=== PATIENT | male | born 1945 | race Caucasian/White ===

== ENCOUNTER 2017-02-24 07:25 | Outpatient (CLI) | payer MEDICARE, OTHER ==
[~2017-02-24] VITALS: Ht 182.9 cm; Wt 109.1 kg
--- NOTE | ~2017-02-24 | HEMODYNAMI ---
PATIENT:JAVI ENGLISH MEDICAL RECORD: [id number] : 49 LOCATION:D.CAT ADMISSION DATE: 02/24/17 Generatedon:02/24/201712:22 Patient name: JAVI ENGLISH Patient #: [id number] SSN: : 1945 Date of study: 02/24/2017 Page: Of Hemodynamic Procedure Report Patient Data Patient Demographics Procedure consent was obtained First Name: JAVI Gender: Male Last Name: TAMEKA : 1945 [facility] Initial: E Age: 71 year(s) Patient #: [id number] Race: Unknown Additional ID: [id number] Contact details [address]: [address] [place] [address] cr State: [place] City: [facility] Zip code: [address] Past Medical History Allergies: No known allergies Admission Admission Data Admission Date: 02/24/2017 Admission Time: 7:25 Procedure Procedure Types Cath Procedure Diagnostic Procedure LHC LHC w/Coronaries PCI Procedure Coronary Stent Initial Miscellaneous Procedures Moderate Sedation up to 15 minutes Procedure Description Procedure Date Procedure Date: 02/24/2017 Procedure Start Time: 12:03 Procedure End Time: 12:20 Procedure Staff Name Function Alfredo Sanchez MD Performing Physician Sukhwinder Nunn RN Nurse Alex Roberts RT Scrub Val Tadeo RT Monitor Procedure Data Cath Procedure Fluoroscopy Diagnostic fluoroscopy Total fluoroscopy Time: 4.4 time: 4.4 min min Diagnostic fluoroscopy Total fluoroscopy dose: dose: 1194 mGy 1194 mGy Contrast Material Contrast Material Type Amount (ml) Isovue 300 119 Entry Location Entry Primary Successful Side Size Upsize Upsize Entry Closure Succes sful Closure Location (Fr) 1 (Fr) 2 (Fr) Remarks Device Remarks Femoral Right 5 Fr 6 Fr Exoseal artery Short Estimated blood loss: 10 ml Diagnostic catheters Device Type Used For End Catheter Placement Cordis 5Fr Pigtail LV Angiography Catheter (MP) Cordis 5Fr JL 4.0 Left Coronary Catheter (MP) Angiography Cordis 5Fr 3DRC Catheter Right Coronary (MP) Angiography Procedure Complications No complications Procedure Medications Medication Administration Route Dosage Oxygen NC 2 l/min Heparin Flush Bag added to field 2 bags (1000units/500ml NS) 0.9% NaCl I.V. 100 ml/hr Fentanyl I.V. 50 mcg Versed I.V. 1 mg Fentanyl I.V. 50 mcg Versed I.V. 1 mg Heparin Bolus I.V. 4000 units Hemodynamics Rest Heart Rate: 47 (bpm) Snapshots Pre Cath Intra NCS Post Cath Vital Signs Time Heart Resp SPO2 NIBP Rhythm Pain Sedation Rate (ipm) (%) (mmHg) Status Level (bpm) 11:47:24 43 18 98 117/66(89) NSR 0 (11) 10(A) , No pain 11:51:36 48 21 96 114/61(92) NSR 0 (11) 10(A) , No pain 11:55:46 46 19 94 120/64(79) NSR 0 (11) 10(A) , No pain 11:59:58 50 18 96 118/62(83) NSR 0 (11) 10(A) , No pain 12:04:55 26 17 98 105/60(81) NSR 0 (11) 9(A) , No pain 12:09:01 51 18 96 107/67(89) NSR 0 (11) 9(A) , No pain 12:13:54 44 16 96 109/63(87) NSR 0 (11) 9(A) , No pain 12:18:02 49 20 96 112/64(86) NSR 0 (11) 9(A) , No pain Medications Time Medication Route Dose Verified Delivered Reason Notes Effectiveness by by 11:46:41 Oxygen NC 2 Sukhwinder Pretty Per physician l/min Edouard Nunn RN RN 11:46:52 Heparin Flush added 2 Sukhwinder Pretty used for Bag to bags Edouard Nunn RN procedure (1000units/500ml field RN NS) 11:47:02 0.9% NaCl I.V. 100 Sukhwinder Amadory Per physician ml/hr Edouard Nunn RN RN 12:03:27 Fentanyl I.V. 50 Sukhwinder Pretty for sedation mcg Edouard Nunn RN RN 12:03:34 Versed I.V. 1 mg Sukhwinder Pretty for sedation Edouard Nunn RN RN 12:09:54 Fentanyl I.V. 50 Sukhwinder Pretty for sedation mcg Edouard Nunn RN RN 12:09:58 Versed I.V. 1 mg Sukhwinder Pretty for sedation Edouard Nunn RN RN 12:10:04 Heparin Bolus I.V. 4000 Sukhwinder Pretty for units Edouard Nunn RN anticoagulation cottage parent Log Time Note 11:21:33 Sukhwinder Nunn RN sent for patient. Start room use. 11::33 Time tracking: Regular hours 11:31:37 Plan of Care:Hemodynamics will remain stable., Cardiac rhythm will remain stable., Comfort level will be maintained., Respiratory function will remain adequate., Patient/ family verbilizes understanding of procedure., Procedure tolerated without complication., Recovers from procedure without complications.. 11:36:28 Patient received from Pre/Post Procedure Room to CCL 2 Alert and oriented. Tansferred to table in Supine position. 11:36:29 Warm blankets applied, and surinder hugger turned on for patient comfort. 11:36:29 Correct patient and procedure confirmed by team. 11:36:30 Signed procedure consent form obtained from patient. 11:36:31 ECG and BP/O2 sat monitors applied to patient. 11:36:32 Full Disclosure recording started 11:46:08 Vital chart was started 11:46:41 Oxygen 2 l/min NC was administered by Sukhwinder Nunn RN; Per physician; 11:46:52 Heparin Flush Bag (1000units/500ml NS) 2 bags added to field was administered by Sukhwinder Nunn RN; used for procedure; 11:47:02 0.9% NaCl 100 ml/hr I.V. was administered by Sukhwinder Nunn RN; Per physician; 11:47:09 Rhythm: 1st degree heart block 11:47:38 Pre-procedure instructions explained to patient. 11:47:38 Pre-op teaching completed and patient verbalized understanding. 11:47:39 Family in waiting room. 11:47:41 Patient NPO since Midnight. 11:47:48 Patient allergic to No known allergies 11:47:51 Is the patient allergic to Iodine/contrast media? No. 11:47:57 Is patient on blood thinner?Yes 11:48:01 ACC The patient was administered the following blood thiners within the last 24 hours: ACCPlavix 11:48:32 Patient diabetic? Yes. 11:48:37 Previous problem with sedation/anesthesia? No ? 11:48:39 Snore? Yes 11:48:39 Sleep apnea? Yes 11:48:40 Deviated septum? No 11:48:41 Opens mouth fully? Yes 11:48:41 Sticks out tongue? Yes 11:48:43 Airway obstruction? No ? 11:48:45 Dentures? No ? 11:48:50 Pre procedure: right dorsailis pedis pulse 2+ Normal; easily identifiable; not easily obliterated 11:48:54 Modified Pieter's test Ulnar > 7 seconds. 11:49:10 IV patent on arrival in left hand with 0.9% NaCl at [facility]. 11:49:16 Lab results completed and on chart. 11:49:19 Right groin area was prepped with chlora-prep and draped in sterile fashion 11:49:20 Alarms reviewed by R. N. 11:49:20 Sharps counted by scrub and verified by R.N. 11:51:42 Patient pain scale 0/10 ?. 11:51:49 Use device set Femoral Dx 11:51:50 Acist Syringe opened to sterile field. 11:51:50 Bag Decanter opened to sterile field. 11:51:51 Medline Cath Pack opened to sterile field. 11:51:51 Terumo 5Fr Mendota Sheath opened to sterile field. 11:51:52 St Anthony 260cm J .035 wire opened to sterile field. 11:51:53 Acist Hand Control opened to sterile field. 11:51:53 Acist Manifold opened to sterile field. 11:51:54 Diagnostic Infinity 5Fr Multipack catheter opened to sterile field. 11:51:54 Tegaderm 4 x 4 opened to sterile field. 11:52:57 Baseline sample Acquired. 11:55:00 Physician paged 11:58:49 Zero performed for pressure channel P1 11:59:40 Final Timeout: patient, procedure, and site verified with staff and physician. All members of the team are in agreement. 11:59:42 Right groin site verified by team. 11:59:46 Physical assessment completed. ASA score P 2 - A patient with mild systemic disease as per Alfredo Sanchez MD. 11:59:58 Sedation plan: IV Moderate Sedation Versed, Fentanyl 12:01:41 H&P Date Dictated: 02/24/2017 New H&P dictated by physician.. 12:03:03 Procedure started. 12:03:07 Local anesthetic to right femoral artery with Lidocaine 2% by Alfredo Sanchez MD.INITIAL ACCESS ONLY 12:03:27 Fentanyl 50 mcg I.V. was administered by Sukhwinder Nunn RN; for sedation; 12:03:34 Versed 1 mg I.V. was administered by Sukhwinder Nunn RN; for sedation; 12:03:44 A 5 Fr sheath was inserted into the Right Femoral artery 12:04:08 A Cordis 5Fr Pigtail Catheter (MP) was advanced over the wire and used for LV Angiography. 12:04:42 LV gram done using ARZATE 12:04:55 EF : 50 % 12:04:59 Injector settings: Ml/sec: 10, Volume: 20, 12:05:00 Catheter removed. 12:05:05 A Cordis 5Fr JL 4.0 Catheter (MP) was advanced over the wire and used for Left Coronary Angiography. 12:06:38 Terumo 6Fr Mendota Sheath opened to sterile field. 12:06:39 Bravo Whisper J 300cm 0.014 guide wire opened to sterile field. 12:06:40 RostelecomixCompak Inflation Kit opened to sterile field. 12:07:46 Catheter removed. 12:07:59 A Cordis 5Fr 3DRC Catheter (MP) was advanced over the wire and used for Right Coronary Angiography. 12:08:39 Catheter removed. 12:08:47 Cordis 6FR XBLAD 4.0 guide catheter opened to sterile field. 12:09:11 Sheath upsized to a 6 Fr Short. 12:09:37 6 Fr XBLAD 4.0 guide catheter was inserted over the wire 12:09:54 Fentanyl 50 mcg I.V. was administered by Sukhwinder Nunn RN; for sedation; 12:09:58 Versed 1 mg I.V. was administered by Sukhwinder Nunn RN; for sedation; 12:10:04 Heparin Bolus 4000 units I.V. was administered by Sukhwinder Nunn RN; for anticoagulation; 12:10:47 Whisper wire advanced. 12:13:49 Inflation Number: 1 A Pangea Universal Holdingstronic Integrity 3.5 X 18 stent was prepped and advanced across the Dist CX. The stent was deployed at 11 MAX for 0:14 (min:sec). 12:13:59 Stent catheter was removed intact over wire. 12:14:00 Wire removed. 12:14:00 Guide catheter removed. 12:14:12 Cordis 6Fr Exoseal opened to sterile field. 12:14:19 Sheath removed intact; hemostasis achieved with Exoseal to the Right Femoral artery. 12:14:23 Procedure ended.(Physican Out) 12:14:33 Fluoroscopy time 04.40 minutes. 12:14:36 Fluoroscopy dose: 1194 mGy 12:14:36 Flurop Dose total: 1194 12:14:40 Contrast amount:Isovue 300 119ml. 12:14:41 Sharps counted by scrub and verified by R.N. 12:15:48 Insertion/operative site no bleeding no hematoma. 12:15:50 Post-op/insertion site Right Femoral artery dressed using a 4 x 4 and Tegaderm. 12:15:53 Post right femoral artery:stable, clean and dry 12:15:54 Post Procedure Pulses reassessed and unchanged 12:15:56 Post-procedure physical assessment completed. ASA score P 2 - A patient with mild systemic disease as per Alfredo Sanchez MD. 12:15:59 Post procedure rhythm: unchanged. 12:16:02 Estimated blood loss: 10 ml 12:16:04 Post procedure instruction explained to patient.Patient verbalizes understanding. 12:16:04 Patient needs reinforcement of post procedure teaching. 12:16:33 Procedure type changed to Cath procedure, Diagnostic procedure, LHC, LHC w/Coronaries, PCI procedure, Coronary Stent Initial, Miscellaneous Procedures, Moderate Sedation up to 15 minutes 12:16:38 Procedure Complication : No complications 12:16:41 See physician's report for complete and final results. 12:17:45 Procedure and supply charges have been captured, reviewed, submitted and are correct. 12:20:38 Vital chart was stopped 12:20:41 Report given to Pre/Post Procedure Room. 12:20:44 Patient transfered to Pre/Post Procedure Room with Stretcher. 12:20:53 Procedure ended. 12:20:53 Full Disclosure recording stopped 12:20:56 End room use (Document Last) Intervention Summary Intervention Notes Time ActionType Lesion and Equipment Action# Pressure Duration Attributes Used 12:13:49 Place stent Dist CX Medtronic 1 11 00:14 Integrity 3.5 X 18 stent Device Usage Item Name Manufacture Quantity Catalog Hospital Part Current Minimal L ot# / Number Charge Number Stock Stock Serial# Code Acist Acist 1 39048 361679 683674 201821 20 Syringe Medical Systems Inc Bag Microtek 1 2002S 832245 79308 940710 5 Decanter Medical Inc. Medline Cardinal 1 [id number] 042722 44797 250055 5 Cath Pack Health Terumo 5Fr Terumo 1 [id number] 317536 293582 015406 [address] [facility] 1 998248 769744 537976 802388 30 260cm J .035 wire Acist Hand Acist 1 60811 262042 917482 807440 5 Control Medical Systems Inc Acist Acist 1 28328 364741 184481 375338 5 Koalify Medical Systems Inc Diagnostic Cardinal 1 [id number] 973592 12644 861227 30 Infinity Health 5Fr Multipack catheter Tegaderm 4 3M 1 1626W 066224 717338 070281 5 x 4 Cordis 5Fr Cardinal 1 022579 5 Pigtail Health Catheter (MP) Cordis 5Fr Cardinal 1 353171 5 JL 4.0 Health Catheter (MP) Terumo 6Fr Terumo 1 YNY441 427507 086403 953460 40 Mendota Sheath Bravo Bravo 1 [id number] 091504 504747 570482 5 Whisper J Vascular 300cm 0.014 guide wire Merit Merit 1 [id number] 530376 157785 397834 15 [facility] Medical Inflation Kit Cordis 5Fr Cardinal 1 382542 5 3DRC Health Catheter (MP) Cordis 6FR Cardinal 1 [id number] 575200 721217 485159 3 XBLAD 4.0 Health guide catheter Medtronic Medtronic 1 [id number] 654249 673858 1 0 [id number] Integrity 3.5 X 18 stent Cordis 6Fr Cardinal 1 EX600 646129 121711 388132 10 Soceaniq Signature Audit [place] Stage Time Signature Unsigned Intra-Procedure 02/24/2017 Val 12:22:22 PM Counts RT(R) Signatures Monitor : Val Signature : Counts RT Date : Time : [address] [place] [address]
--- NOTE | ~2017-02-24 | OP ---
PATIENT NAME: JAVI ENGLISH MEDICAL RECORD: [id number] :49 LOCATION:D.CAT ADMISSION DATE: SURGEON: TOMMY LOONEY MD OPERATION DATE: 02/24/17 PROCEDURES: 1. Percutaneous transluminal coronary angioplasty stent left circumflex. 2. Left heart catheterization. 3. Selective coronary angiography. 4. Left ventriculogram. INDICATION: 1. Chest pain compatible with angina. 2. Coronary artery disease. PROCEDURE IN DETAIL: After informed consent was obtained and after detailed explanation of risks, benefits, as well as alternative therapies, the patient elected to proceed with angiogram and angioplasty. The right femoral area was prepped and draped in a normal sterile fashion. The right femoral artery was cannulated via modified Seldinger technique with placement of 6-Romanian sheath. All catheters exchanged through this sheath. FINDINGS: The left ventriculogram was performed in standard 30 degree ARZATE view, reveals good cardiac wall motion throughout all segments. Overall ejection fraction preserved at 50%. SELECTIVE CORONARY ANGIOGRAPHY: 1. The left main has no significant angiographic disease. 2. The left anterior descending has previously placed stents. These are widely patent with no significant restenosis. No disease elsewise throughout the left anterior descending or its branches. 3. The left circumflex is a very large dominant structure that feeds the inferior wall. It has 70-80% stenosis in the distal vessel affecting the inferior wall. This is compatible with the nuclear stress test findings. 4. The right coronary artery is small and nondominant. PTCA STENT OF THE LEFT CIRCUMFLEX: The stent used was a 3.5 X 18 millimeter Integrity. The result was 0% residual stenosis. OVERALL IMPRESSION: Successful percutaneous transluminal coronary angioplasty stent of the left circumflex going from 70-80% initial stenosis to 0% residual stenosis. TOMMY LOONEY MD CC: [id number] DICTATION DATE: 02/24/17 1500 SUPERVISOR DRAPERY HANGING: DM 02/25/17 0921 DEP CLI 02/24/17 [facility] [address] [id number]
--- NOTE | ~2017-02-24 | HP ---
PATIENT: JAVI ENGLISH MEDICAL RECORD: [id number] ACCOUNT: [id number] LOCATION:JACEY : 49 ADMISSION DATE: 02/24/17 HISTORY AND PHYSICAL EXAMINATION PROBLEM LIST: 1. Angina. 2. Coronary artery disease. 3. Abnormal nuclear stress test. 4. Previous percutaneous transluminal coronary angioplasty stent. 5. Noninsulin dependent diabetes. 6. Hypertension. 7. Hyperlipidemia. HISTORY OF PRESENT ILLNESS: This is a gentleman who presents with anginal symptomatology. Nuclear stress test shows inferior perfusion defect. He is now brought for cardiac catheterization. PHYSICAL EXAMINATION: HEAD, EYES, EARS, NOSE, AND THROAT: Benign. NECK: Supple. No jugular venous distention. Carotid upstroke plus two bilaterally without bruits. LUNGS: Overall clear to auscultation and percussion. HEART: Regular. Normal S1, normal S2. No S3, no S4. No murmurs. BONES, JOINTS, EXTREMITIES: No clubbing, cyanosis, or edema. OVERALL IMPRESSION: Chest pain with abnormal nuclear stress test. He has a high likelihood of hemodynamically significant coronary artery disease. Will proceed with coronary angiography. Further care depends upon the findings of the angiography. TOMMY LOONEY MD CC: [id number] DICTATION DATE: 02/24/17 1000 PETROLOGIST: DM 02/25/17 0843 DEP CLI 02/24/17 [facility] [address] [place] [address]
[~2017-02-24 07:25] MED LIST: ACETAMINOPHEN500 M1 PO; AMBIEN5 MG PO; ANUSOL-HC25 MG RC; BAYER CHEWABLE81 MG PO; BENADRYL25 MG PO; CELEBREX200 MG PO; COLACE100 MG PO; COUMADIN5 MG PO; COUMADIN7.5 MG PO; DIOVAN HCT 160/1 TA1 PO; ELIQUIS2.5 MG PO; GLUCOPHAGE500 MG PO; GLUCOSAMINE & C1 CAP PO; HYDROCODONE-APA1 TAB PO; METOPROLOL TART50 MG PO; MS CONTIN15 MG PO; MS CONTIN30 MG PO; MULTI-DAY VITAM1 TAB PO; ONDANSETRON4 MG/2 M3 PO; OXYCODONE HCL5 MG PO; PLAVIX75 MG PO; PRAVACHOL20 MG PO; PRAVACHOL40 MG PO; SALINE FLUSH10 ML IV; SENOKOT-S TABLE1 TAB PO; TOPROL XL50 MG PO; TUMS500 MG PO; ZOFRAN4 MG PO
[2017-02-24] MEDS ORDERED: GLUCOSAMINE & C1 CAP PO (07:38)
[2017-02-24] MEDS ORDERED: PLAVIX75 MG PO (07:38)
[2017-02-24] MEDS ORDERED: MULTIPLE VITAMI1 TA1 PO (07:40)
[2017-02-24 07:52] VITALS: BP 135/64; Ht 182.9 cm; Wt 109.1 kg
[2017-02-24 08:02] LABS: BASOPHILS 0.4 % (0-2); EOSINOPHILS 7.1 % (0-7); HEMATOCRIT 41.1 % (42.0-54.0); HEMOGLOBIN 13.9 g/dL (13.5-17.5); IMMATURE GRANULOCYTES 0.3 % (0-5); LYMPHOCYTES 23.2 % (15-50); MCH 32.3 pg (26.0-34.0); MCHC 33.8 g/dL (31.0-37.0); MCV 95.4 fL (80.0-100.0); MEAN PLATELET VOLUME 9.8 fL (7.4-10.4); PLATELET COUNT 181 10x3/uL (130-400); RBC 4.31 10x6/uL (4.20-6.10)
[2017-02-24 08:14] LABS: ANION GAP 15.7 mmol/L (8-16); CALCIUM 8.9 mg/dL (8.5-10.1); CARBON DIOXIDE 23.2 mmol/L (21.0-32.0); CREATININE - SERUM 1.1 mg/dL (0.6-1.3); POTASSIUM - SERUM 3.9 mmol/L (3.5-5.1)
--- NOTE | 2017-02-24 12:36 | NUR ---
RECIEVED TO ROOM VIA STRETCHER FROM ANESTHESIOLOGY TEACHER WITH 6 FR EXOSEAL R/GROIN CDI NO BLEEDING NO HEMATOMA NOTED. HR 48 CHEST PAIN DENIED BP 108/58. INSTRUCTED PATIENT TO KEEP HEAD FLAT ON PILLOW WITH RLE STRAIGHT
[2017-02-24] MEDS ORDERED: BAYER CHEWABLE81 MG PO (12:44)
--- NOTE | 2017-02-24 12:50 | NUR ---
DENIED C/O SB RATE 46 CHEST PAIN DENIED. 6 FR EXOSEAL R/GROIN CDI NO BLEEDING NO HEMATOMA NOTED. INSTRUCTED PATIENT TO KEEP HEAD FLAT ON PILLOW WITH RLE STRAIGHT
--- NOTE | 2017-02-24 13:13 | NUR ---
VSS WITH CHEST PAIN DENIED 6 FR EXOSEAL R/GROIN CDI NO BLEEDING NO HEMATOMA NOTED.
--- NOTE | 2017-02-24 14:00 | NUR ---
1400 CHEST PAIN DENIED WITH VSS. SANDWICH AND SODA TO BEDSIDE. 6 FR EXOSEAL R/GROIN CDI NO BLEEDING NO HEMATOMA NOTED
--- NOTE | 2017-02-24 14:30 | NUR ---
1430 VOICED NO PAIN OR NEEDS R/GROIN CDI WITH FAMILY AT SIDE
--- NOTE | 2017-02-24 15:05 | NUR ---
RESTING QUIETLY WITH NO DISTRESS NOTED R/GROIN CDI NO BLEEDING NO HEMATOMA NOTED.
--- NOTE | 2017-02-24 15:52 | NUR ---
REPOSITIONED TO SITTING WITH HOB UP 45 DEGREES CHEST PAIN IS DENIED WITH 6 FR EXOSEAL R/GROIN CDI NO BLEEDING NO HEMATOMA NOTED.
--- NOTE | 2017-02-24 16:07 | NUR ---
PIV REMOVED WITH DRESSING APPLIED. VSS WITH CHEST PAIN DENIED 6 FR EXOSEAL R/GROIN CDI NO BLEEDING NO HEMATOMA NOTED. PATIENT UP TO GET DRESSED FOR DISCHARGE HOME
--- NOTE | 2017-02-24 16:21 | NUR ---
VERBAL AND WRITTEN DISCHARGE GONE OVER WITH PATIENT AND BOTH VERBALIZED UNDERSTANDING. CHEST PAIN IS DENIED 6 FR EXOSEAL R/GROIN CDI NO BLEEDING NO HEMATOMA NOTED. PATIENT AMBULATES WITH STEADY GAIT NO DISTRESS NOTED. LEFT VIA WC TO PARKING FOR TO DRIVE HOME
== END 2017-02-24 16:24 | disposition home or self-care (01) ==
LOC: D.CATH 07:25
PROVIDERS: Internal Medicine Interventional Cardiology
DX: I25.119 Atherosclerotic heart disease of native coronary artery with unspecified angina pectoris (principal); E11.9 Type 2 diabetes mellitus without complications; I10 Essential (primary) hypertension; E78.5 Hyperlipidemia, unspecified; Z01.812 Encounter for preprocedural laboratory examination

== ENCOUNTER → 2019-07-12 20:10 | Outpatient (CLI) | payer MEDICARE, OTHER ==
[2017-02-24 07:52] VITALS: BMI 32.6
[~2019-07-12 20:10] MED LIST changes: +MULTIPLE VITAMI1 TA1 PO
== END | disposition home or self-care (01) ==
LOC: D.LABREF 20:10
PROVIDERS: ATTEND Orthopaedic Surgery
DX: M19.011 Primary osteoarthritis, right shoulder (principal)

== ENCOUNTER 2019-07-13 19:05 | Inpatient (IN) | payer MEDICARE, OTHER ==
[~2019-07-13] VITALS: Ht 182.9 cm; Wt 113.6 kg
[2019-08-11] MEDS ORDERED: PRAVASTATIN SOD10 MG PO (09:23)
[2019-08-11 10:16] LABS: BASOPHILS 0.4 % (0-2); EOSINOPHILS 9.4 % (0-7); HEMATOCRIT 41.3 % (42.0-54.0); HEMOGLOBIN 13.9 g/dL (13.5-17.5); IMMATURE GRANULOCYTES 0.7 % (0-5); LYMPHOCYTES 25.2 % (15-50); MCH 32.8 pg (26.0-34.0); MCHC 33.7 g/dL (31.0-37.0); MCV 97.4 fL (80.0-100.0); MEAN PLATELET VOLUME 9.5 fL (7.4-10.4); MONOCYTES 8.7 % (2-11); NEUTROPHILS 55.6 % (40-80); PLATELET COUNT 205 10x3/uL (130-400); RBC 4.24 10x6/uL (4.20-6.10); RDW 13.4 % (11.5-14.5); WBC 8.9 10x3/uL (4.8-10.8)
[2019-08-11 10:17] LABS: ANION GAP 11.9 mmol/L (8-16); CALCIUM 8.6 mg/dL (8.5-10.1); CARBON DIOXIDE 26.5 mmol/L (21.0-32.0); CREATININE - SERUM 1.1 mg/dL (0.6-1.3); POTASSIUM - SERUM 4.4 mmol/L (3.5-5.1)
[2019-08-11 10:22] LABS: APTT 29.1 SECONDS (22.8-39.4); INR 1.07 (0.85-1.17); PROTIME 13.4 SECONDS (11.6-15.0)
[2019-08-11 10:54] LABS: APPEARANCE CLEAR (CLEAR); BILIRUBIN NEGATIVE (NEGATIVE); COLOR YELLOW (YELLOW); GLUCOSE NEGATIVE (NEGATIVE); KETONE NEGATIVE (NEGATIVE); NITRITE NEGATIVE (NEGATIVE); PROTEIN NEGATIVE (NEGATIVE); UROBILINOGEN NORMAL (NORMAL)
[2019-08-15] MEDS ORDERED: XALATAN 0.0052.5 ML EACH EYE (06:39)
[2019-08-15 06:40] VITALS: BP 142/72; BMI 34.0
--- NOTE | 2019-08-15 11:07 | NUR ---
PT ARRIVED IN ROOM VIA BED. VS HOOKED UP, PT IS ALERT AND ORIENTED. STATES FEELING NO PAIN AT THIS TIME. NO FAMILY AT BEDSIDE. CLI N REACH, SRX2.
[2019-08-15 11:12] VITALS: BP 122/67
[2019-08-15 14:04] VITALS: BP 132/72
--- NOTE | 2019-08-15 14:07 | NUR ---
PT AWAKE AND ORIENTED, REPORTS LITTLE PAIN, ONLY A 1/10. DOES NOT REQUEST PAIN MEDS AT THIS TIME. NO FAMILY AT BEDSIDE. CL IN REACH SRX2. WILL CNT. TO MONITOR.
[2019-08-15 16:18] VITALS: BP 141/58
--- NOTE | 2019-08-15 16:35 | OP ---
PATIENT NAME: JAVI ENGLISH MEDICAL RECORD: [id number] :49 LOCATION:D.MS [id number] ADMISSION DATE:08/15/19 SURGEON: JAN RODRÍGUEZ MD DATE OF OPERATION: 08/15/2019 PREOPERATIVE DIAGNOSIS: Chronic rotator cuff arthropathy of the right shoulder. POSTOPERATIVE DIAGNOSIS: Chronic rotator cuff arthropathy of the right shoulder. PROCEDURE: Reverse total shoulder arthroplasty of the right shoulder. SURGEON: Jan Rodríguez MD PAINTER SHIPYARD: Reno Bellamy APN INTRAOPERATIVE COMPLICATIONS: None. SUMMARY OF PATHOLOGIC FINDINGS: The patient had a complete rotator cuff tear from the infraspinatus to the subscapularis. Biceps tendon had subluxed medially. Subscapularis was repairable back to the lesser tuberosity postoperatively. IMPLANTS USED: [place] Univers II system, size 10 stem, size 39 set at 135 metaphyseal component, size 39 neutral glenosphere, a size 24 base with 4 screws set. ESTIMATED BLOOD LOSS: 200 cc. OPERATIVE SUMMARY IN DETAIL: After obtaining the appropriate preoperative orthopedic surgery consent as well as anesthetic consultation, evaluation and clearance, the patient was brought to the operating room and placed on the operating table in supine position. After adequate general laryngeal mask airway was administered, the patient was placed in beach chair position. All pressure points were well padded. He was held firmly to the operating table using the vacuum pack suction system. Right upper extremity and shoulder were then prepped and draped in routine sterile fashion. The arm was held in the Trimano arm holding device from [employer]. Deltopectoral incision was taken down. The cephalic vein was protected throughout the entire case. Clavipectoral fascia was incised. The conjoined tendon was retracted gently medially while the deltoid was held laterally using a brown retractor. The biceps tendon was partially torn. It was then released in its entirety and tagged for later reapproximation. Humeral head was subluxed into the incision site where the proximal humeral head cut was made. Serial and sequential reaming and broaching were done for a size 10, proximal volar reaming was done for a size 39. At this point, the large humeral head cut protector was placed over the stem and the glenoid was exposed. Circumferential labrectomy of the glenoid with a biceps tenotomy was performed. Center pin was put into place. The appropriate reaming was performed. After the appropriate reaming was performed, measurements were taken and the baseplate was put into place with the central screw with excellent fixation using a 25. Two locking and 2 nonlocking screws were placed on the periphery with good fixation. The clearing device was utilized around the periphery of the baseplate to be sure that the glenosphere seated nicely. The glenosphere was then put into place on the Oneil taper tamped screwed tamped screwed, it fit nicely with good position. At this point, attention was turned OPERATIVE REPORT [id number] JAVI ENGLISH to the proximal humerus. After several trials a size 10 stem with the 39 capsule component was articulated on the back table and then tamped into place. Trials were undertaken. It was felt that a 6 polyethylene was the most appropriate. The 6 was then tamped into place. Shoulder was reduced, taken through range of motion and found to be stable in all planes. Wound was then copiously irrigated and filled with a gram of vancomycin, gram of tobramycin. Subscapularis was then reapproximated to the lesser tuberosity transosseously using #2 Ethibond done by Reno Bellamy. Then, skin was closed over the incision with #1 Vicryl, 2-0 Vicryl and skin cecy. Sterile dressings were applied. The patient was awakened and taken to the recovery room in stable condition. All final needle and sponge counts were correct. TRANSINT:[id number] Voice Confirmation ID: [id number] DOCUMENT ID: [id number] MARCOS ABREU, JAN DE SANTIAGO at 1635 CC: [id number] DICTATION DATE: 08/15/19 1003 PLASTIC PANEL INSTALLER: 08/15/19 1500 ADM IN [facility] [address] [place] [address]
--- NOTE | 2019-08-15 19:00 | NUR ---
BEDSIDE REPORT RECEIVED AND CARE OF PT ASSUMED. PT LYING IN HIGH RESTREPO'S POSITION VISITING WITH SPOUSE. RIGHT ARM IN SLING. FINGERS WARM AND PINK AND FREELY MOVABLE. PT C/O NO PAIN AT THIS TIME, BUT CONCERNED ABOUT CONSTIPATION, WITH NO BM X3 DAYS. DRINKING PRUNE JUICE AT THIS TIME. IV TO LEFT AC PATENT WITH NS INFUSING AT 75 ML/HR. WILL MONITOR FOR NEEDS.
[2019-08-15 20:00] VITALS: BP 140/61
[2019-08-15 20:02] VITALS: Ht 182.9 cm; Wt 113.6 kg
--- NOTE | 2019-08-15 21:20 | NUR ---
HS MEDICATIONS GIVEN TO INCLUDE A NORCO PO FOR PAIN, AND A DULCOLAX SUPPOSITORY FOR CONSTIPATION.
--- NOTE | 2019-08-15 23:00 | NUR ---
POSITIVE RESULTS FROM DULCOLAX SUPP...PT HAD LARGE BM. WILL CONTINUE TO MONITOR FOR NEEDS.
[2019-08-16] VITALS: BP 125/61
--- NOTE | 2019-08-16 04:30 | NUR ---
PT C/O RIGHT SHOULDER BEGINNING TO HAVE SEVERE PAIN. GAVE PERCOSET 10 PO AND IV TORADOL PER PRN ORDER. WILL MONITOR FOR EFFECTIVENESS AND CONSIDER STARTING DONOR CENTER TECHNICIAN PER ORDER IF NEEDED.
[2019-08-16 05:16] VITALS: BP 130/60
[2019-08-16 06:45] LABS: HEMATOCRIT 33.9 % (42.0-54.0); HEMOGLOBIN 11.7 g/dL (13.5-17.5); MCH 33.5 pg (26.0-34.0); MCHC 34.5 g/dL (31.0-37.0); MCV 97.1 fL (80.0-100.0); MEAN PLATELET VOLUME 9.4 fL (7.4-10.4); RBC 3.49 10x6/uL (4.20-6.10); WBC 11.7 10x3/uL (4.8-10.8)
--- NOTE | 2019-08-16 07:52 | NUR ---
ALERT AND ORIENTED. LUNGS CLEAR BILATERALLY. HEART SOUNDS S1 AND S2 HEARD IN ALL KRISHNA. BOWEL SOUNDS ACTIVE X 4. DRSG TO RIGHT SHOULDER C/D/I. SLING IN PLACE. IV TO LEFT AC PATENT WITHOUT REDNESS. DENIES NEEDS. BED LOW. CALL OSULLIVAN AND PERSONAL ITEMS IN REACH. WILL CONTINUE TO MONITOR.
[2019-08-16 07:54] VITALS: BP 143/53
[2019-08-16] MEDS ORDERED: PERCOCET 10-321 EAC1 PO (08:31)
--- NOTE | 2019-08-16 10:33 | NUR ---
DISCHARGE EDUCATION PROVIDED BOTH WRITTEN AND VERBAL. VERBALIZED UNDERSTANDING. DENIES FURTHER QUESTIONS. EDUCATION PROVIDED ON PENDULUM EXERCISISES BOTH WRITTEN AND VERBAL. TWO EXTRA DRSGS PROVIDED FOR SHOULDER. IV REMOVED FROM LEFT HAND WITH TIP INTACT. PATIENT DENIES FURTHER NEEDS. DISCHARGED HOME WITH WITH ALL BELONGINGS AFTER WALKING WITH PT STEPHAN.
== END 2019-08-16 10:35 | disposition home or self-care (01) | DRG 483 ==
LOC: D.MS 08-15 05:40 → D.SDCHOLD 08-15 05:40 → D.MS 08-15 10:53
PROVIDERS: ADMIT Orthopaedic Surgery; ATTEND Orthopaedic Surgery
PROC: 0RRJ00Z Replacement of Right Shoulder Joint with Reverse Ball and Socket Synthetic Substitute, Open Approach (ICD-10-PCS; principal; 2019-08-15 08:15)
DX: M12.811 Other specific arthropathies, not elsewhere classified, right shoulder (principal); I10 Essential (primary) hypertension; I25.10 Atherosclerotic heart disease of native coronary artery without angina pectoris; E78.5 Hyperlipidemia, unspecified; Z87.891 Personal history of nicotine dependence

== ENCOUNTER → 2020-05-09 11:16 | Outpatient (CLI) | payer MEDICARE, OTHER ==
[2019-08-15 20:02] VITALS: BMI 34.0
[~2020-05-09 11:16] MED LIST changes: +PERCOCET 10-321 EAC1 PO; +PRAVASTATIN SOD10 MG PO; +XALATAN 0.0052.5 ML EACH EYE
== END | disposition home or self-care (01) ==
LOC: D.HCCARDIO 11:16
PROVIDERS: ATTEND Internal Medicine Cardiovascular Disease
DX: I25.10 Atherosclerotic heart disease of native coronary artery without angina pectoris (principal)

== ENCOUNTER 2020-05-24 06:40 | Day surgery (SDC) | payer MEDICARE, OTHER ==
[~2020-05-24] VITALS: Ht 182.9 cm; Wt 118.5 kg
--- NOTE | ~2020-05-24 | HEMODYNAMI ---
PATIENT:JAVI ENGLISH MEDICAL RECORD: [id number] : 49 LOCATION:D.CAT ADMISSION DATE: 05/24/20 Generatedon:05/24/20208:28 Patient name: JAVI ENGLISH Patient #: [id number] SSN: [id number] : 1945 Date of study: 05/24/2020 Page: Of Hemodynamic Procedure Report Patient Data Patient Demographics Procedure consent was obtained First Name: JAVI Gender: Male Last Name: TAMEKA : 1945 Middle Initial: E Age: 74 year(s) Patient #: [id number] Race: SSN: [id number] Additional ID: [id number] Contact details Address: [address] [place] [address] State: [place] City: [facility] Zip code: [address] Past Medical History Performed procedures and imaging results Date Procedure Procedure Results Comments 05/09/2020 Stress testing Positive->Intermediate with SPECT MPI risk Allergies: No known allergies Admission Admission Data Admission Date: 05/24/2020 Admission Time: 6:40 Arrival Date: 05/24/2020 Arrival Time: 0:00 Admit Source: Other Insurance Payor: Medicare [facility] #: [id number] Height (in.): 72 BSA: 2.34 (m2) Height (cm.): 182.88 BMI: 33.91 (kg/m2) Weight (lbs.): 250 Weight (kg.): 113.4 Lab Results Lab Result Date: 05/24/2020 Lab Result Time: 0:00 Biochemistry Name Units Result Min Max BUN mg/dl 25 --(----)-* 7 18 Creatinine mg/dl 1 --(--*-)-- 0.6 1.3 eGFR ml/min 78 *-(----)-- 90 120 NONAFRICAN CBC Name Units Result Min Max Hematocrit % 42.1 --(*---)-- 42 54 Hemoglobin g/dl 13.9 --(*---)-- 13.5 17.5 Procedure Procedure Types Cath Procedure Diagnostic Procedure [facility] w/Coronaries Sedation Charges Moderate Sedation up to 15 minutes Procedure Description Procedure Date Procedure Date: 05/24/2020 Procedure Start Time: 8:13 Procedure End Time: 8:25 Procedure Staff Name Function Anup De La O MD Performing Physician Luis Nettles RN Nurse Rosemarie Curry RT Ion Implant Machine Operator Racheal Hernandez RT Monitor Procedure Data Cath Procedure Fluoroscopy Diagnostic fluoroscopy Total fluoroscopy Time: 1.6 time: 1.6 min min Diagnostic fluoroscopy Total fluoroscopy dose: 721 dose: 721 mGy mGy Contrast Material Contrast Material Type Amount (ml) Isovue 370 54 Entry Location Entry Primary Successful Side Size Upsize Upsize Entry Closure Succes sful Closure Location (Fr) 1 (Fr) 2 (Fr) Remarks Device Remarks Femoral Right 5 Fr Exoseal artery Estimated blood loss: 5 ml Diagnostic catheters Device Type Used For End Catheter Placement MULTIPACK JL 4.0 5Fr Procedure catheter MULTIPACK 3DRC 5Fr Procedure catheter MULTIPACK Pigtail 5 Fr Procedure catheter Procedure Complications No complications Procedure Medications Medication Administration Route Dosage Oxygen etCO2 Nasal cannula 2 l/min Lidocaine 2% added to field 20 Heparin Flush Bag added to field 2 bags (1000units/500ml NS) 0.9% NaCl I.V. 100 ml/hr Versed I.V. 1 mg Fentanyl I.V. 50 mcg Versed I.V. 1 mg Fentanyl I.V. 50 mcg Versed I.V. 1 mg Hemodynamics Rest BSA: 2.34 (m2) HGB: 13.9 (g/dl) O2 Consumption: Estimated: 243.5 (ml/min) O2 Con sumption indexed: Estimated:104.06 (ml/min/m) Heart Rate: 40 (bpm) Pressure Samples Time Site Value (mmHg) Purpose Heart Use Rate(bpm) 8:20 LV 150/18,29 Snapshot 52 8:21 AO 147/67(97) Pullback 47 8:21 LV 146/9,25 Pullback 47 Gradients Valve Time Site 1 Site 2 Mean SEP/DFP Peak To Heart Use (mmHg) (sec/min) Peak Rate (mmHg) (bpm) Aortic 8:21 LV AO 0 14 0 47 146/9,25 147/67(97) Calculations Valve P-P Mean Valve Index Valve Source Name Gradient Area Flow (cm2) Aortic 0 0 0 0 Snapshots Pre Cath Intra NCS Post Cath Vital Signs Time Heart Resp SPO2 etCO2 NIBP (mmHg) Rhythm Pain Sedation Rate (ipm) (%) (mmHg) Status Level (bpm) 8:03:25 49 14 98 0 132/78(106) 2 0 (11) 10(A) degree , No AV pain Block Type I 8:07:43 41 19 95 11.9 129/75(117) 2 0 (11) 10(A) degree , No AV pain Block Type I 8:12:46 45 14 99 0 132/69(115) 2 0 (11) 10(A) degree , No AV pain Block Type I 8:18:02 46 16 95 26.1 125/67(110) 2 0 (11) 9(A) degree , No AV pain Block Type I 8:22:22 45 15 94 8.9 135/66(109) 2 0 (11) 10(A) degree , No AV pain Block Type I Medications Time Medication Route Dose Verified Delivered Reason Notes Effe ctiveness by by 8:02:29 Oxygen etCO2 2 Anup Buffie used for Nasal l/min Jairon Nettles director of financial planning cannula 8:03:23 Lidocaine 2% added 20ml Anup Anup for local to vial Jairon De La O MD anesthetic field 8:03:32 Heparin Flush added 2 Anup Buffie used for Bag to bags Jairon Nettles RN procedure (1000units/500ml field NS) 8:03:41 0.9% NaCl I.V. 100 Anup Buffie Per ml/hr Jairon Nettles RN physician 8:04:50 Versed I.V. 1 mg Anup Buffie for Jairon Nettles RN sedation 8:05:01 Fentanyl I.V. 50 Anup Buffie for mcg Jairon Nettles RN sedation 8:13:39 Versed I.V. 1 mg Anup Buffie for Jairon Nettles RN sedation 8:13:43 Fentanyl I.V. 50 Anup Buffie for mcg Jairon Nettles RN sedation 8:20:10 Versed I.V. 1 mg Anup Buffie for Jairon Nettles RN sedation Procedure Log Time Note 7:14:02 Informed consent obtained and on chart 7:14:28 Diagnostic Cath Status : Elective 7:14:51 Patient allergic to No known allergies 7:19:06 Arrival Date: 05/24/2020 12:00:00 AM 7:19:06 Admit Source: Other 7:19:08 Insurance Payor : Medicare 7:19:18 Patient Weight : 250 lbs 7:19:26 Patient Height : 72 inches 7:22:34 Lab Result : Hemoglobin 13.9 g/dl 7:22:34 Lab Result : Hematocrit 42.1 % 7:35:25 Lab Result : eGFR NONAFRICAN 78 ml/min 7:35:25 Lab Result : Creatinine 1 mg/dl 7:35:25 Lab Result : BUN 25 mg/dl 7:36:19 ACC Patient presents with Stable Angina CCS Anginal Class 2--Slight limitation of ordinary activity. 7:36:28 Procedure Status Elective Heart Cath (OP). 7:36:31 Time tracking: Regular hours (M-F 7:00 - 5:00) 7:36:36 Plan of Care:Hemodynamics will remain stable., Cardiac rhythm will remain stable., Comfort level will be maintained., Respiratory function will remain adequate., Patient/ family verbilizes understanding of procedure., Procedure tolerated without complication., Recovers from procedure without complications.. 7:36:51 H&P Date Dictated: 05/03/2020 Within 30 days and on chart.. 7:36:52 Pre-procedure instructions explained to patient. 7:36:52 Pre-op teaching completed and patient verbalized understanding. 7:36:56 Family in waiting room. 7:36:58 Patient NPO since Midnight. 7:37:04 Lab results completed and on chart. 7:38:10 Stress Test: yes; abnormal INFERIOR 7:38:12 Alarms reviewed by R. N. 7:38:13 Sharps counted by scrub and verified by R.N. 7:43:42 Rosemarie Curry RT(R) sent for patient. Start room use. 7:48:37 Patient received from Pre/Post Procedure Room to CCL 1 Alert and oriented. Tansferred to table in Supine position. 7:48:42 Warm blankets applied, and surinder hugger turned on for patient comfort. 7:48:43 Correct patient and procedure confirmed by team. 7:48:43 ECG and BP/O2 sat monitors applied to patient. 7:48:52 Is the patient allergic to Iodine/contrast media? No. 7:48:54 Was the patient premedicated? No 7:48:55 Is patient on blood thinner?No 7:48:57 Patient diabetic? Yes. 7:48:59 If diabetic: On Metformin? Yes 7:49:03 If on Metformin: Last Dose? 05/22/2020 7:49:05 ----Pre-sedation anethsthesia assessment.---- 7:49:09 Previous problem with sedation/anesthesia? No ? 7:49:10 Snore? Yes 7:49:11 Sleep apnea? Yes 7:49:13 Deviated septum? No 7:49:14 Opens mouth fully? Yes 7:49:15 Sticks out tongue? Yes 7:49:18 Airway obstruction? No ? 7:49:20 Dentures? No ? 7:49:26 Pre procedure: right dorsailis pedis pulse 2+ Normal; easily identifiable; not easily obliterated 7:49:28 Patient pain scale 0/10 ?. 7:49:34 IV patent on arrival in left antecubital with 0.9% NaCl at [facility]. 7:49:40 Right groin area was prepped with chlora-prep and draped in sterile fashion 7:49:47 Full Disclosure recording started 8:02:05 Vital chart was started 8:02:29 Oxygen 2 l/min etCO2 Nasal cannula was administered by Luis Nettles RN; used for procedure; Verbal order read back and verified. 8:03:23 Lidocaine 2% 20ml vial added to field was administered by Anup De La O MD; for local anesthetic; Verbal order read back and verified. 8:03:32 Heparin Flush Bag (1000units/500ml NS) 2 bags added to field was administered by Luis Nettles RN; used for procedure; Verbal order read back and verified. 8:03:41 0.9% NaCl 100 ml/hr I.V. was administered by Luis Nettles RN; Per physician; Verbal order read back and verified. 8:03:52 Baseline sample Acquired. 8:03:58 Rhythm: 2nd degree heart block 8:04:03 Use device set Femoral Dx 8:04:04 ACIST Syringe (99461) opened to sterile field. 8:04:05 Bag Decanter (2002S) opened to sterile field. 8:04:05 Medline Cath Pack ([id number]) opened to sterile field. 8:04:06 ACIST Hand Control (55815) opened to sterile field. 8:04:07 ACIST Manifold (24515) opened to sterile field. 8:04:08 DIAGNOSTIC Multipack 5Fr catheter set ([id number]) opened to sterile field. 8:04:08 SHEATH 5FR Milmine (TKQ187) opened to sterile field. 8:04:10 EMERALD Guide Wire (128-697) opened to sterile field. 8:04:16 --------ALL STOP TIME OUT------ 8:04:16 Final Timeout: patient, procedure, and site verified with staff and physician. All members of the team are in agreement. 8:04:17 Right groin site verified by team. 8:04:20 Fire Safety Assessment: A--An alcohol-based skin anteseptic being used preoperatively., C--Open oxygen or nitrous oxide is being used., D--An ESU, laser, or fiber-optic light is being used. 8:04:24 Physical assessment completed. ASA score P 2 - A patient with mild systemic disease as per Anup De La O MD. 8:04:27 2) 60-89 Mildly reduced kidney function, and other findings (as for stage 1) point to kidney disease. 8:04:29 Maximum allowable contrast dose (3.7 X eGFR X 0.75)216 ml. 8:04:34 Sedation plan: IV Moderate Sedation Medication:Versed, Fentanyl 8:04:50 Versed 1 mg I.V. was administered by Luis Nettles RN; for sedation; Verbal order read back and verified. 8:05:01 Fentanyl 50 mcg I.V. was administered by Luis Nettles RN; for sedation; Verbal order read back and verified. 8:13:23 Procedure started. 8:13:26 Local anesthetic to right femoral artery with Lidocaine 2% by Anup De La O MD.INITIAL ACCESS ONLY 8:13:39 Versed 1 mg I.V. was administered by Luis Nettles RN; for sedation; Verbal order read back and verified. 8:13:43 Fentanyl 50 mcg I.V. was administered by Luis Nettles RN; for sedation; Verbal order read back and verified. 8:15:09 A 5 Fr sheath was inserted into the Right Femoral artery 8:15:37 A MULTIPACK JL 4.0 5Fr catheter was advanced over the wire and used for Procedure. 8:15:52 LCA angiography performed. 8:15:55 Injector settings: Ml/sec: 3, Volume: 6, 8:17:17 Catheter exchanged over wire. 8:17:37 A MULTIPACK 3DRC 5Fr catheter was advanced over the wire and used for Procedure. 8:18:48 RCA angiography performed. 8:18:56 Injector settings: Ml/sec: 3, Volume: 6, 8:18:58 ACCDominant side:Left 8:19:03 Catheter exchanged over wire. 8:19:19 A MULTIPACK Pigtail 5 Fr catheter was advanced over the wire and used for Procedure. 8:20:06 LV gram done using ARZATE 8:20:10 Versed 1 mg I.V. was administered by Luis Nettles RN; for sedation; Verbal order read back and verified. 8:20:41 LV hemodynamics recorded. 8:21:13 EF : 40 % 8:21:31 Catheter removed. 8:21:34 EXOSEAL 5Fr (EX500) opened to sterile field. 8:21:44 Fluoroscopy time 01.60 minutes. 8:21:51 Fluoroscopy dose: 721 mGy 8:21:51 Flurop Dose total: 721 8:22:02 Dose Area Product 60235 mGy/cm. 8:22:18 Sheath removed intact; hemostasis achieved with Exoseal to the Right Femoral artery. 8:23:02 Procedure ended.(Physican Out) 8:23:10 Contrast amount:Isovue 370 54ml. 8:23:13 Maximum allowable dose exceeded? No. 8:23:14 Sharps counted by scrub and verified by R.N. 8:23:21 Post-op/insertion site Right Femoral artery dressed using a 4 x 4 and Tegaderm. 8:24:05 Post right femoral artery:stable, soft, clean and dry 8:24:08 Post Procedure Pulses reassessed and unchanged 8:24:10 Post procedure: right dorsailis pedis pulse 2+ Normal; easily identifiable; not easily obliterated. 8:24:13 Post-procedure physical assessment completed. ASA score P 2 - A patient with mild systemic disease as per Anup De La O MD. 8:24:25 Post procedure rhythm: unchanged. 8:24:28 Estimated blood loss: 5 ml 8:24:29 Post procedure instruction explained to patient.Patient verbalizes understanding. 8:24:30 Patient needs reinforcement of post procedure teaching. 8:25:02 Procedure type changed to Cath procedure, Diagnostic procedure, LHC, C w/Coronaries, Sedation Charges, Moderate Sedation up to 15 minutes 8:25:17 Procedure and supply charges have been captured, reviewed, submitted and are correct. 8:25:22 Procedure Complication : No complications 8:25:27 [facility] Findings: MVD- MD will discuss options w/ pt 8:25:28 Operative report dictated upon procedure completion. 8:25:29 See physician's report for complete and final results. 8:25:31 Report given to Pre/Post Procedure Room. 8:25:34 Patient transfered to Pre/Post Procedure Room with Stretcher. 8:25:38 Procedure ended. 8:25:38 Full Disclosure recording stopped 8:27:10 Vital chart was stopped 8:27:11 End room use (Document Last) 8:27:22 End room use (Document Last) 8:27:42 End room use (Document Last) Device Usage Item Name Manufacture Quantity Catalog Hospital Part Current Minimal L ot# / Number Charge Number Stock Stock Serial# Code ACIST Acist 1 30958 038278 901201 227499 20 Syringe Medical (36870) Systems Inc Bag Microtek 1 760639 62122 406473 5 Decanter Medical Inc. () Medline Medline 1 [id number] 475668 83675 199171 5 Cath Pack ([id number]) ACIST Hand Acist 1 55036 083385 742907 655901 5 Control Medical (66166) Systems Inc ACIST Acist 1 51049 002840 611624 590465 5 Manifold Medical (51660) Systems Inc DIAGNOSTIC Cardinal 1 IN6231 092183 72307 647840 30 Multipack Health 5Fr catheter set (BJ1909) SHEATH 5FR Terumo 1 ENQ233 022300 484270 653021 5 Milmine (VKW136) EMERALD Cardinal 1 502-455 241352 754429 697694 5 Guide Wire Health (502-005) MULTIPACK Cardinal 1 072242 5 JL 4.0 5Fr Health catheter MULTIPACK Cardinal 1 424567 5 3DRC 5Fr Health catheter MULTIPACK Cardinal 1 446346 5 Pigtail 5 Health Fr catheter EXOSEAL 5Fr Cardinal 1 EX500 648734 418335 418154 10 (EX500) Health Signature Audit [place] Stage Time Signature Unsigned Intra-Procedure 05/24/2020 Racheal Hernandez 8:27:22 AM RT(R) Intra-Procedure 05/24/2020 Luis Nettles RN 8:27:42 AM Intra-Procedure 05/24/2020 Anup De La O MD 8:28:02 AM [place] [id number]
[2020-05-24] MEDS ORDERED: XALATAN 0.0052.5 ML EACH EYE (06:54)
[2020-05-24 07:10] VITALS: BP 147/50; Ht 182.9 cm; Wt 118.5 kg
[2020-05-24 07:13] LABS: BASOPHILS 0.5 % (0-2); EOSINOPHILS 9.5 % (0-7); HEMATOCRIT 42.1 % (42.0-54.0); HEMOGLOBIN 13.9 g/dL (13.5-17.5); IMMATURE GRANULOCYTES 0.5 % (0-5); LYMPHOCYTES 28.6 % (15-50); MCV 96.8 fL (80.0-100.0); MEAN PLATELET VOLUME 9.8 fL (7.4-10.4); MONOCYTES 8.5 % (2-11); NEUTROPHILS 52.4 % (40-80); PLATELET COUNT 201 10x3/uL (130-400); RBC 4.35 10x6/uL (4.20-6.10); RDW 13.3 % (11.5-14.5); WBC 8.7 10x3/uL (4.8-10.8)
[2020-05-24 07:30] LABS: ALT (SGPT) 29 U/L (10-68); CALC OSMOLALITY 283 mosm/kg (275-300); CALCIUM 8.8 mg/dL (8.5-10.1); CARBON DIOXIDE 22.5 mmol/L (21.0-32.0); CHLORIDE - SERUM 106 mmol/L (98-107); CHOL - HDL RATIO 3.1 ratio (2.3-4.9); CHOLESTEROL, TOTAL 145 mg/dL (0-200); GLUCOSE 125 mg/dL (74-106); HDL CHOLESTEROL 47 mg/dL (32-96); LDL CHOLESTEROL 84 mg/dL (0-100); LDL-HDL RATIO 1.8 ratio (1.5-3.5); POTASSIUM - SERUM 4.4 mmol/L (3.5-5.1); SODIUM 140 mmol/L (136-145); TRIGLYCERIDE 72 mg/dL (30-200); UREA NITROGEN 25 mg/dL (7-18); eGFR NON AFRICAN AMERICAN 78 mL/min (90-120)
--- NOTE | 2020-05-24 08:40 | NUR ---
PT ARRIVED BY STRETCHER. PLACED ON MONITORS. ASSESSMENT COMPLETED. VSS AT THIS TIME. CALL LIGHT WITHIN REACH. FAMILY AT BEDSIDE.
--- NOTE | 2020-05-24 08:55 | NUR ---
RIGHT GROIN DRESSING C/D/I. NO S/S OF HEMATOMA NOTED. CALL LIGHT WITHIN REACH. VSS AT THIS TIME. FAMILY AT BEDSIDE.
--- NOTE | 2020-05-24 09:25 | NUR ---
RIGHT GROIN DRESSING C/D/I. NO S/S OF HEMATOMA NOTED. CALL LIGHT WITHIN REACH. VSS AT THIS TIME. NO NEEDS. TOLERATING SIPS OF SODA. RIGHT PEDAL PULSE PALPABLE.
--- NOTE | 2020-05-24 10:00 | NUR ---
RIGHT GROIN DRESSING C/D/I. NO S/S OF HEMATOMA NOTED. RIGHT PEDAL PULSE PALPABLE. HEAD OF BED INC TO 30 DEGREES. TOLERATED WELL. SET UP WITH SANDWICH TRAY AT THIS TIME.
--- NOTE | 2020-05-24 10:30 | NUR ---
PT RESTING COMFORTABLY. VSS. RIGHT GROIN DRESSING C/D/I. NO S/S OF HEMATOMA NOTED. RIGHT PEDAL PULSE PALPALBE. FAMILY AT BEDSIDE.
--- NOTE | 2020-05-24 10:55 | NUR ---
DR. KHAN ROUNDED AND SPOKE WITH PT AND PT'S . THEY VOICED UNDERSTANDING. RIGHT GROIN DRESSING C/D/I. NO S/S OF HEMATOMA NOTED. PIV D/C'D WITH CATH TIP INTACT. TOLERATED WELL. PT INSTRUCTED TO GET UP AND DRESSED AT THIS TIME.
--- NOTE | 2020-05-24 11:00 | NUR ---
DISCUSSED DISCHARGE INSTRUCTIONS WITH PT AND PT'S FAMILY. THEY VOICED UNDERSTANDING.
--- NOTE | 2020-05-24 11:10 | NUR ---
PT AMBULATED TO RESTROOM. VOIDED WITHOUT DIFFICULTY. STEADY GAIT NOTED. RIGHT GROIN DRESSING C/D/I. NO S/S OF HEMATOMA NOTED. PT TAKEN OUT TO VEHICLE BY WHEELCHAIR. NO S/S OF DISTRESS NOTED. ALL BELONGINGS AND PAPERWORK IN HAND.
== END 2020-05-24 11:10 | disposition home or self-care (01) ==
LOC: D.CATH 06:40
PROVIDERS: ATTEND Internal Medicine Cardiovascular Disease
DX: I25.10 Atherosclerotic heart disease of native coronary artery without angina pectoris (principal); R94.39 Abnormal result of other cardiovascular function study; E11.9 Type 2 diabetes mellitus without complications; E78.5 Hyperlipidemia, unspecified; I10 Essential (primary) hypertension; R06.00 Dyspnea, unspecified; I34.0 Nonrheumatic mitral (valve) insufficiency

== ENCOUNTER 2020-10-09 07:50 | Inpatient (IN) | payer MEDICARE, OTHER ==
[~2020-10-09] VITALS: Ht 182.9 cm; Wt 114.5 kg
[2020-10-09 11:17] LABS: BASOPHILS 0.2 % (0-2); EOSINOPHILS 0.4 % (0-7); HEMATOCRIT 40.8 % (42.0-54.0); HEMOGLOBIN 13.8 g/dL (13.5-17.5); IMMATURE GRANULOCYTES 0.4 % (0-5); LYMPHOCYTE ABS# 1.44 10x3/uL (1.32-3.57); LYMPHOCYTES 12.7 % (15-50); MCH 32.5 pg (26.0-34.0); MCHC 33.8 g/dL (31.0-37.0); MCV 96.2 fL (80.0-100.0); MEAN PLATELET VOLUME 9.6 fL (7.4-10.4); MONOCYTES 4.7 % (2-11); NEUTROPHIL ABS# 9.24 10x3/uL (1.78-5.38); NEUTROPHILS 81.6 % (40-80); PLATELET COUNT 212 10x3/uL (130-400); RBC 4.24 10x6/uL (4.20-6.10); RDW 13.1 % (11.5-14.5); WBC 11.3 10x3/uL (4.8-10.8)
[2020-10-09 11:21] LABS: ANION GAP 11.5 mmol/L (8-16); CALCIUM 9.3 mg/dL (8.5-10.1); CARBON DIOXIDE 26.8 mmol/L (21.0-32.0); CREATININE - SERUM 1.3 mg/dL (0.6-1.3); POTASSIUM - SERUM 4.3 mmol/L (3.5-5.1)
[2020-10-09 11:26] LABS: ALBUMIN 3.7 g/dL (3.4-5.0); BILIRUBIN - TOTAL 0.53 mg/dL (0.2-1.3); PROTEIN - SERUM 6.7 g/dL (6.4-8.2)
[2020-10-09 11:36] LABS: INR 1.21 (0.85-1.17); PROTIME 14.2 SECONDS (11.6-15.0)
[2020-10-09 12:16] VITALS: BP 102/69
--- NOTE | 2020-10-09 12:30 | NUR ---
RECEIVED PATIENT FROM ER, PATIENT IS IN A LOT OF PAIN WHEN TRANSFERRING PATIENT FROM STRETCHER TO BED. MAIL TELLER STARTED, NO NEEDS AT THIS TIME. CONTINUE WITH PLAN OF CARE
[2020-10-09 14:44] VITALS: BP 117/62; Ht 182.9 cm; Wt 114.5 kg
[2020-10-09 20:00] VITALS: BP 143/56; BP 149/67
[2020-10-10] VITALS: BP 145/64
[2020-10-10 04:00] VITALS: BP 142/64
[2020-10-10 05:44] LABS: ANION GAP 12.3 mmol/L (8-16); CALCIUM 8.8 mg/dL (8.5-10.1); CARBON DIOXIDE 26.8 mmol/L (21.0-32.0); CREATININE - SERUM 1.4 mg/dL (0.6-1.3); POTASSIUM - SERUM 4.1 mmol/L (3.5-5.1)
[2020-10-10 06:07] LABS: HEMATOCRIT 41.1 % (42.0-54.0); HEMOGLOBIN 13.5 g/dL (13.5-17.5); LYMPHOCYTE ABS# 1.72 10x3/uL (1.32-3.57); MCH 32.4 pg (26.0-34.0); MCHC 32.8 g/dL (31.0-37.0); MEAN PLATELET VOLUME 9.9 fL (7.4-10.4); PLATELET COUNT 209 10x3/uL (130-400); RBC 4.17 10x6/uL (4.20-6.10); RDW 13.8 % (11.5-14.5)
[2020-10-10 06:14] LABS: MCV 98.6 fL (80.0-100.0)
[2020-10-10 08:39] VITALS: BP 145/50
--- NOTE | 2020-10-10 08:51 | NUR ---
PATIENT INQUIRING ON METFORMIN, STATES HE TAKES IT TWICE A DAY AND MEDICATION IS ON MED REC, WILL CHECK WITH SOCIAL SCIENCES CHAIR. CONTINUE WITH PLAN OF CARE
--- NOTE | 2020-10-10 09:55 | NUR ---
CALLED PATIENT SPOUSE TO TELL HER PASTIENT HAS BEEN TAKEN BACK TO SURGERY HOLDING. CONTINUE WITH PLAN OF CARE
[2020-10-10 09:57] LABS: EOSINOPHILS 2 % (0-7); LYMPHOCYTES 13 % (15-50); MONOCYTES 8 % (2-11); NEUTROPHILS 75 % (40-80); PLATELET ESTIMATE NORMAL
--- NOTE | 2020-10-10 12:55 | NUR ---
PATIENT HAS BRUISES ON RIGHT ABDOMEN, BACK OF LEFT LEG SCRATCHES, TWORLEY.
[2020-10-10 13:36] VITALS: BP 152/67
--- NOTE | 2020-10-10 15:00 | NUR ---
ASSISTED PATIENT UP TO RESTROOM. PATIENT DRESSING ON LOWER BACK IS CDI, IV IN LEFT HAND RESITED TO LEFT FA PER PATIENT REQUEST. NO OTHER NEEDS AT THIS TIME. COTNINUE WITH PLAN OF CARE
[2020-10-10 16:48] VITALS: BP 152/70
--- NOTE | 2020-10-10 17:27 | NUR ---
RESTING,WITHOUT SIGNS OF DISTRESS.CALL LIGHT IN REACH
--- NOTE | 2020-10-10 19:45 | NUR ---
RECEIVED BEDSIDE REPORT. PT LAYING IN BED A&O X4. PIV TO LEFT FOREARM, PATENT AND INFUSING, NO REDNESS OR SWELLING. DRSG TO LOWER BACK. PT ABLE TO AMBULATE WITH ASSIST. EDUCATED ON CL AND NEEDS, VERBALIZED UNDERSTANDING. BED LOW, CL IN REACH.
[2020-10-10 20:00] VITALS: BP 137/63
[2020-10-11] VITALS: BP 106/52
[2020-10-11 04:00] VITALS: BP 118/54
[2020-10-11 06:42] LABS: BASOPHILS 0 % (0-2); EOSINOPHILS 0 % (0-7); IMMATURE GRANULOCYTES 0.4 % (0-5); LYMPHOCYTE ABS# 0.98 10x3/uL (1.32-3.57); LYMPHOCYTES 7.9 % (15-50); MCH 31.7 pg (26.0-34.0); MCHC 32.5 g/dL (31.0-37.0); MCV 97.6 fL (80.0-100.0); MEAN PLATELET VOLUME 9.6 fL (7.4-10.4); MONOCYTES 7.3 % (2-11); NEUTROPHIL ABS# 10.45 10x3/uL (1.78-5.38); NEUTROPHILS 84.4 % (40-80); PLATELET COUNT 206 10x3/uL (130-400); RDW 13.4 % (11.5-14.5); WBC 12.4 10x3/uL (4.8-10.8)
[2020-10-11 06:44] LABS: ALBUMIN 3.4 g/dL (3.4-5.0); ANION GAP 11.3 mmol/L (8-16); BILIRUBIN - TOTAL 0.55 mg/dL (0.2-1.3); CALCIUM 8.2 mg/dL (8.5-10.1); CARBON DIOXIDE 26.2 mmol/L (21.0-32.0); CREATININE - SERUM 1.4 mg/dL (0.6-1.3); POTASSIUM - SERUM 4.5 mmol/L (3.5-5.1); PROTEIN - SERUM 6.4 g/dL (6.4-8.2)
[2020-10-11 08:42] VITALS: BP 120/59
[2020-10-11] MEDS ORDERED: MEDROL DOSE PACK4 MG PO (08:52)
[2020-10-11] MEDS ORDERED: HYDROCODON-ACE1 EA10 PO (08:53)
--- NOTE | 2020-10-17 13:05 | OP ---
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 PROCEDURE: Lumbar laminectomy, medial facetectomy and foraminotomy at L4-L5 on the right with METRx retractor. DESCRIPTION OF PROCEDURE: After induction of general endotracheal anesthesia, the patient was rolled prone on the Hugh frame. The lumbar spine was prepped and draped in the usual sterile fashion. Fluoroscopic x-ray and spinal needle localized the L4-L5 interspace on the right side. A stab incision was created with a #11 blade. After infiltration with 100,000 epinephrine with 1% lidocaine, a series of dilators were used to advance a METRx retractor at L4-L5 on the right. The level was confirmed with fluoroscopic x-ray. A microscope and Midas Shawn drill were used to perform a laminectomy, medial facetectomy, and foraminotomy at L4-L5 on the right. Hypertrophied ligamentum flavum was removed with Cloward rongeurs. Following this, there was an obvious free fragment disk herniation within the axilla of the right L5 nerve root. This was removed with pituitary rongeurs and curettes. As additional material was removed from the disk space, following this there was excellent decompression of the right L5 nerve root. Meticulous hemostasis was maintained throughout the wound. The wound was irrigated with copious amounts of Ancef irrigant solution. The retractor was removed. The fascia was closed with 2-0 Vicryl suture. The subdermal layer was closed with 3-0 Vicryl suture. The skin was closed with cecy. A sterile dressing was applied to the wound. The patient was awakened in good condition and taken to recovery. All counts were reported as correct. ESTIMATED BLOOD LOSS: Minimal. TRANSINT:[id number] Voice Confirmation ID: [id number] DOCUMENT ID: [id number] NEIL CAMP MD at 1302 CC: [id number] DICTATION DATE: 10/16/20 1235 PRINTED CIRCUIT BOARDS INSPECTOR: 10/16/20 1319 DIS IN 10/11/[address] [facility] [address] [place] [address]
== END 2020-10-11 14:47 | disposition home or self-care (01) | DRG 517 ==
LOC: D.ER 07:50 → D.MS 09:15 → OBSVTIME 09:15 → D.EDHOLD 09:15 → D.MS 11:20
PROVIDERS: Family Medicine; ADMIT Family Medicine; ATTEND Family Medicine
PROC: 01NB0ZZ Release Lumbar Nerve, Open Approach (ICD-10-PCS; principal; 2020-10-11)
DX: M51.26 Other intervertebral disc displacement, lumbar region (principal); M48.061 Spinal stenosis, lumbar region without neurogenic claudication; E11.65 Type 2 diabetes mellitus with hyperglycemia; I25.10 Atherosclerotic heart disease of native coronary artery without angina pectoris; K21.9 Gastro-esophageal reflux disease without esophagitis; K57.90 Diverticulosis of intestine, part unspecified, without perforation or abscess without bleeding; G89.29 Other chronic pain; I10 Essential (primary) hypertension